=== PATIENT | male | born 1985 | race Caucasian/White ===

== ENCOUNTER 2016-11-18 07:48 | Day surgery (SDC) | payer BC ==
[~2016-11-18] VITALS: Ht 188 cm; Wt 97.5 kg
[~2016-11-18 07:48] MED LIST: ULTRAM50 MG PO
[2016-11-18 09:04] VITALS: BP 117/73; Ht 188 cm; Wt 97.5 kg
--- NOTE | 2016-11-18 16:43 | NUR ---
1300 C/O PAIN, RATED PAIN AT 10, NORCO 5/325 X 2 PO GIVEN 1330 ICE REPLACED TO ABD [address] CHANEY CALLED NEW ORDERS DILUDID 0.5 MG IV GIVEN FOR PAIN 1500 UP TO BATHROOM VOIDED , PAIN RATED AT 6 1515 IV DC WITH CATHER TIP INTACT
--- NOTE | 2016-12-23 09:40 | OP ---
PATIENT NAME: ROMANA HOWE MEDICAL RECORD: [id number] :83 LOCATION:D.[facility] ADMISSION DATE: SURGEON: LOREE CHANEY MD DATE OF OPERATION: 11/18/2016 PREOPERATIVE DIAGNOSIS: Symptomatic right inguinal hernia. POSTOPERATIVE DIAGNOSES: Symptomatic right indirect inguinal hernia and also right cord lipoma. PROCEDURES: 1. Open right indirect inguinal herniorrhaphy with bilayered preperitoneal polypropylene mesh. 2. Excision of cord lipoma, right. SURGEON: Loree Chaney MD PAIN MANAGEMENT PHYSICIAN: None. BLOOD LOSS: Minimal. ANESTHESIA: General. COMPLICATIONS: None. The risks, possible complications and alternatives to procedure were explained to the patient. He elects to proceed. OPERATIVE COURSE: The patient was conveyed to the operating room electively on 11/18/2016. General anesthesia was induced by anesthesia staff. The genitals and lower abdomen were sterilely prepped and draped. A transverse incision was accomplished in the right inguinal area. Sharp dissection was carried down through skin and subcutaneous tissue as well as Deuce fascia. The external oblique aponeurosis was then opened along the direction of its fibers. I dissected down through the internal oblique and transverse abdominis muscle layers. A preperitoneal pocket was fashioned bluntly. I entered the hernia sac. There was a sliding component. I ligated the hernia sac highly and then transected the sac distal to this. There was a cord lipoma. I cauterized the vascular pedicle to the cord lipoma and excised the cord lipoma. I cut 2 ovals out of a polypropylene mesh. I sutured the 2 ovals, one on top of the other with a running #1 Surgidac. I placed the mesh in the preperitoneal space. Once I was satisfied with placement of the mesh, I allowed the muscular layers to fall together over the mesh and sutured them together with multiple interrupted horizontal mattresses 0 Surgidac. I incorporated a portion of the mesh with these sutures. The external oblique aponeurosis was closed with a running #1 Vicryls. Deuce fascia was approximated with interrupted 3-0 Vicryls. The subdermis was approximated with interrupted 3-0 Vicryls. The skin was approximated with a running intracuticular 4-0 Vicryl. Benzoin and Steri-Strips were applied. The patient was then extubated and conveyed to post-anesthesia care unit where he was in stable condition. He will be dismissed home on [place] for pain. I will see him in the office in 2-3 weeks. OPERATIVE REPORT [id number] ROMANA HOWE TRANSINT:[id number] Voice Confirmation ID: [id number] DOCUMENT ID: [id number] CC: Dr. Solange Bryan, [place], [place], LOREE CHANEY MD at 0940 CC: DR. SOLANGE BRYAN [id number] DICTATION DATE: 11/18/16 1211 SACK DEPARTMENT SUPERVISOR: 11/18/16 1757 [facility] 11/18/16 [facility] [address] [place] [address]
--- NOTE | 2016-12-23 09:40 | HP ---
PATIENT: ROMANA HOWE MEDICAL RECORD: [id number] ACCOUNT: [id number] [facility] AD[facility]ION DATE: 11/18/16 HISTORY AND PHYSICAL EXAMINATION CHIEF COMPLAINT: Hernia. HISTORY OF PRESENT ILLNESS: The patient has a right inguinal hernia. It has been increasingly symptomatic. It is reducible. I saw the patient in the holding area. He demonstrated a right inguinal hernia for me. He has descended testicles, which are nontender. There is no left-sided hernia. I am going to plan for a right inguinal hernia repair with mesh. The risks, possible complications and alternatives to procedure were explained to the patient. He elects to proceed. SOCIAL HISTORY: Nonsmoker. HOME MEDICATIONS: Tramadol. ALLERGIES: PENICILLIN. PAST MEDICAL AND SURGICAL HISTORY: Otherwise, negative. REVIEW OF SYSTEMS: Negative for sleep apnea. No coronary artery disease or hypertension. No congestive heart failure, CVA or seizures. No diabetes or thyroid problems. Review of systems is negative other than as is described above. PHYSICAL EXAMINATION: GENERAL: The patient does not appear acutely ill. He does not appear chronically ill. VITAL SIGNS: Reviewed. HEAD: External ears appear normal. EYES: Extraocular movements are intact. NECK: Trachea is midline. CHEST: No intercostal retractions. PULMONARY: Nonlabored, no stridor. ABDOMEN: Nontender. GENITOURINARY: As described above. EXTREMITIES: No peripheral cyanosis. IMPRESSION: Symptomatic right inguinal hernia. PLAN: Open right inguinal hernia repair with mesh. TRANSINT:[id number] Voice Confirmation ID: [id number] DOCUMENT ID: [id number] HISTORY AND PHYSICAL [id number] CARLEYROMANA VELASCO LOREE CORONEL MD at 0940 CC: [id number] DICTATION DATE: 11/18/16 1031 RADIAL DRILL OPERATOR FOR PLASTIC: 11/18/16 1513 [facility] 11/18/16 [id number] [place] [address]
== END 2016-11-18 15:30 | disposition home or self-care (01) ==
LOC: D.OPS 07:48 → D.PAN 09:00 → D.OPS 11:00
DX: K40.90 Unilateral inguinal hernia, without obstruction or gangrene, not specified as recurrent (principal)